=== PATIENT | male | born 1970 | race Caucasian/White ===

== ENCOUNTER 2018-10-27 20:11 | Emergency (ER) | payer OTHER ==
[~2018-10-27] VITALS: Ht 182.9 cm; Wt 117.9 kg
--- NOTE | 2018-10-27 23:22 | EKG ---
[facility] [address] [facility] [place] [address] Signed Normal sinus rhythm Normal ECG No previous ECGs available Confirmed by VIRY TAPIA MD ([id number]) on 10/27/2018 11:22:38 PM Electronically Signed By: VIRY TAPIA MD 10/27/18 2322 PATIENT NAME: NYLA HOLDEN Electrocardiogram DATE OF : 70 PHYSICIAN: VIRY TAPIA MD REPORT #: [id number] REPORT IS CONFIDENTIAL AND NOT TO BE RELEASED WITHOUT AUTHORIZATION
== END 2018-10-27 23:08 | disposition home or self-care (01) ==
LOC: ED 20:11
DX: G45.9 Transient cerebral ischemic attack, unspecified (principal); E11.9 Type 2 diabetes mellitus without complications; Z98.84 Bariatric surgery status; Z90.49 Acquired absence of other specified parts of digestive tract; Z88.1 Allergy status to other antibiotic agents; Z88.0 Allergy status to penicillin; Z88.5 Allergy status to narcotic agent
CPT/HCPCS: 70450; 70496; 70498; 71045; 80053; 84484; 85025; 85610; 85730; 93005; 93010; 99284-25; G0480; Q9967

== ENCOUNTER 2019-01-15 10:03 | Inpatient (IN) | payer OTHER ==
[~2019-01-15] VITALS: Ht 182.9 cm; Wt 113.4 kg
[2019-01-19] MEDS ORDERED: ONCE DAILY1 EACH PO (13:26)
--- NOTE | 2019-01-23 08:50 | NUR ---
PT IS ALERT, ORIENTED AND SUPPORTED BY A FRIEND RILEY. PT SEEMED CALM, HAD FEW QUESTIONS-DECLINED PRAYER AT THIS TIME. WILL FOLLOW NEEDED
--- NOTE | 2019-01-23 09:19 | NUR ---
01/23/19 0919 Shadia,Nikki 0909 PT ARRIVED TO PACU ON 10L VIA MASK, RESP EVEN AND UNLABORED BUT SHALLOW. O2 SAT 100%. 910 PT WOKE AND OPENED HIS EYES, PT REORIENTED TO PACU. PT DENIES PAIN AND NAUSEA. SURGICAL SITE CDI. PT BACK TO SLEEP AND ENCOURAGED TO DEEP BREATHE OFF AND ON. 912 O2 DECREASED TO 6L VIA MASK, PT BREATHING LESS SHALLOW, RN CONTINUES TO ENCOURAGE DEEP BREATHING OFF AND ON. 916 PT WOKE AND CONTINUES TO DENY PAIN AND NAUSEA. ICE IN PLACE ON RIGHT LOWER ABD.
--- NOTE | 2019-01-23 10:10 | NUR ---
PT ARRIVED ON THE FLOOR FROM PACU AT 0940. BEDSIDE REPORT FROM OSKAR SILVER. PT IS DROWSY, BUT EASILY WAKES TO VOICE. PT REPORTS NAUSEA, IV ZOFRAN GIVEN. DRESSING IS CDI, ICE PACK APPLIED. GAVE INSTRUCTIONS ON IS USE, PT VERBALIZED UNDERSTANDING. PT RESTING COMFORTABLY AT THIS TIME. HE DECLINED JELLO OR JUICE AT THIS TIME UNTIL HIS NAUSEA IS CONTROLLED.
--- NOTE | 2019-01-23 11:12 | NUR ---
PT IS RESTING COMFORTABLY. PT REPORTS ZOFRAN WAS EFFECTIVE.
--- NOTE | 2019-01-23 12:01 | NUR ---
PT RESTING COMFORTABLY, AT BEDSIDE. REPORTS FEELING NEED TO VOID, BUT UNABLE TO USE URINAL AT THIS TIME. WILL TRY AGAIN LATER. IVF SELENEING. REPORTS NAUSEA IS RESOLVED, TOLERATING WATER WELL. DENIED JELLO OR JUICE AT THIS TIME.
--- NOTE | 2019-01-23 13:18 | NUR ---
PT SLEEPING SOUNDLY, POST OP VITALS COMPLETE. PT WAS ABLE TO VOID SMALL AMT. ENCOURGAGED TO CONTINUE TO DRINK FLUIDS. PT STATES HE FEELS "OK" AT THIS TIME.
--- NOTE | 2019-01-23 18:35 | NUR ---
PT UP IN ROOM INDEPENDENTLY WITH SPOUSE. VOIDING WELL, GOOD ORAL INTAKE. PAIN IS WELL CONTROLED WITH PRN PAIN MEDS. NO REPORTS OF NAUSEA AFTER ZOFRAN DOSE. DRESSING C/D/I.
--- NOTE | 2019-01-23 20:32 | NUR ---
IN BED, TOLERATING FLUIDS WELL. MEDICATED WITH NORCO 1 TAB PO 5/10 ABD PAIN. COOP WITH ASSESSMENT, ON ROOM AIR. DRESSING R LOWER ABD WITH OLD SHADOWING. ABD TENDER, EARLE, NOT PASSING GAS. SCDS IN PLACE, IVF INFUSING W/O PROBLEMS. NO N/V. SIGNIFICANT OTHER IN ROOM.
--- NOTE | 2019-01-23 21:06 | NUR ---
PT REQUESTS 2ND NORCO, RATES ABD PAIN 5/10, STARTING TO RADIATE INTO R SIDE. PT ASSISTED TO BATHROOM AND BACK TO BED WITH 1 PA. PT DENIES DIZINESS, LIGHTHEADEDNESS, OR FEELING UNSTEADY. ICE PACK REFILLED. PT DENIES FURTHER NEEDS AT THIS TIME. CALL LIGHT IN REACH.
--- NOTE | 2019-01-23 21:10 | NUR ---
RESIDENTIAL FRAMING CARPENTER ROUNDING NOTE. PT AND PARTNER DENY QUESTIONS OR CONCERNS AT THIS TIME. CALL LIGHT IN REACH.
--- NOTE | 2019-01-24 00:58 | NUR ---
MEDICATED WITH 2 NORCO 6/10 ABD PAIN. DRESSING INTACT. C/O ABD CRAMPING, NOT PASSING GAS, NO BM. VOIDING DARK YELLOW URINE. PT AMBULATING HALLWAYS WITH FAMILY MEMBER, NO N/V, TOLERATING FLUIDS WELL.IVF INFUSING, SCDS INPLACE
--- NOTE | 2019-01-24 03:11 | NUR ---
UP TO BR, VOIDED, BACK TO BED, TOLERATED WELL. NO FURTHER C/O PAIN, NO N/V
--- NOTE | 2019-01-24 05:16 | NUR ---
PT AWAKES EASILY. R LOW ABD DRESSING WITH OLD DRAINAGE INPLACE. ABD TENDER TO TOUCH . EARLE. STATES NOT PASSING GAS YET. NO BM. UP WALKING HALLWAYS TWICE, TOLERATED WELL. UP INDEPENDENT IN ROOM. IVF INFUSING W/O PROBLEMS. SCDS INPLACE. TOLERATING DIET AND LIQUIDS WELL. WAS MEDICATED 2X WITH NORCO C/O ABD PAIN WITH GOOD PAIN RELIEF. IVF INFUSING W/O PROBLEMS. IS AND CPOX IN PLACE. SIGNIFICANT OTHER IN ROOM.
--- NOTE | 2019-01-24 05:41 | NUR ---
up to br, voided, back to bed, Passing gas rectally and increased oral burping noted and stated. abd soft, tender, dressing with old shadowing intact. Medicated with 2 [place] 01/12 abd paiin. Pt has not slept much this shift. Reassured, ice to incision. fresh fluids given, call light at bedside
--- NOTE | 2019-01-24 07:32 | NUR ---
RECIEVED BEDSIDE REPORT FROM OSKAR SALDIVAR. PT AWAKE AND ALERT IN BED. PASSING GAS AND BURPING. VOIDING WELL, DRINKING FLUIDS WELL. INDEPENDENT IN ROOM WITH SPOUSE.
--- NOTE | 2019-01-24 08:26 | OR ---
[facility] [address] [place], [place] [address] Signed DATE OF OPERATION: 01/23/2019 SURGEON: Erika Ferrara MD PREOPERATIVE DIAGNOSIS: Right lower quadrant abdominal wall ventral incisional hernia (8 x 10 cm). POSTOPERATIVE DIAGNOSIS: Right lower quadrant abdominal wall ventral incisional hernia (8 x 10 cm). PROCEDURE PERFORMED: Primary open ventral incisional herniorrhaphy with intraabdominal Ventrio mesh (13.8 x 17.8 cm). ESTIMATED BLOOD LOSS: None. INDICATIONS: Nyla is a 48-year-old gentleman, used to weigh over 400 pounds. He required an open appendectomy through a right lower quadrant transverse incision around 2005. He had developed an incisional hernia in that area. In the meantime, he had a gastric sleeve procedure in 2016. He went down to 250 pounds. He has been pretty stable at that weight. He now has a symptomatic but moderately reducible incisional hernia. He had been to his primary care provider who asked him to see me as a local general surgeon. I met with Nyla and his friend in the office. I could feel the fascial edges medially but not laterally. It felt to be about 8-10 cm in diameter. He has significant redundancy and pliability of abdominal wall, so we have thought we could bring that together primarily over a piece of our standard Ventrio mesh. I gave Nyla and his friend a Maureen brochure on hernias. We looked at that carefully together. We reviewed the nature of his hernia along with the difference between a primary suture repair and a mesh repair. He understands the nature of the surgery along with the expected intraop and postop course. We also reviewed the risks including, but not limited to bleeding, infection, scarring, change in contour of the skin, damage to bowel, infection of mesh requiring removal, recurrent hernias and chronic pain. He had expressed understanding and wished to proceed. DESCRIPTION OF PROCEDURE: I met with Nyla and his friend in our preop area. We all agreed on the right lower quadrant hernia and we marked that appropriately. After this, Nlya was taken into the operating room and placed in the supine position under general endotracheal tube Electronically Signed By: ERIKA FERRARA MD 01/24/19 0826 PATIENT NAME: NYLA HOLDEN OPERATIVE REPORT DATE OF : 70 REPORT #: [id number] PHYSICIAN: ERIKA FERRARA MD PCP: JOSE PEPPER REPORT IS CONFIDENTIAL AND NOT TO BE RELEASED WITHOUT AUTHORIZATION [facility] [address] [place], [place] [address] Signed anesthesia. He was prepped and draped in the usual sterile fashion. He was given preoperative antibiotics along with subcutaneous heparin. SCDs were utilized. We did not utilize a Deluca catheter for this case. We utilized his previous transverse incision. We opened that sharply with a knife and carried it down through the tissue bluntly and with the cautery. The entire hernia sac was excised and passed off the field. He had some small bowel adherent to the lateral portion of the wound and that is the reason we could not feel the edge of that fascia. It was taken down easily with our cautery and returned to the abdomen. The entire right lower quadrant was then free of adhesions. The hernia sac measured out 8 x 10 cm. We therefore chose our 13.8 x 17.8 cm oval-shaped Ventrio mesh. It was easily placed in the abdominal cavity with the omentum down over the area of the small bowel. The fascial edges were then brought together transversely with interrupted [id number] #1 Prolene sutures. A few individual simple Prolene sutures were placed in between. Several passes of the suture went through the top layer of the mesh to help hold it in place and keep it centered. Afterwards, local anesthetic was injected into his abdominal wall. The wound was irrigated and suctioned out until clear. We then closed the redundant subcutaneous adipose tissue with several interrupted 3-0 Monocryl sutures. The dermis was then brought together with multiple interrupted 3-0 subcuticular Monocryl sutures. The skin edges were reapproximated with a running 6-0 fast absorbing plain gut suture. Dry gauze and tape were then applied. Nyla was then awakened from his anesthesia slowly due to his multiple sclerosis. He was extubated and then taken into recovery room in stable condition. Erika Ferrara MD ALB/MODL /[id number] cc: MD Jose Campos FNP Copies: ERIKA FERRARA MD Electronically Signed By: ERIKA FERRARA MD 01/24/19 0826 PATIENT NAME: NYLA HOLDEN OPERATIVE REPORT DATE OF : 70 REPORT #: [id number] PHYSICIAN: ERIKA FERRARA MD PCP: JOSE PEPPER REPORT IS CONFIDENTIAL AND NOT TO BE RELEASED WITHOUT AUTHORIZATION [facility] [address] [place], [place] [address] Signed JOSE PEPPER ~ Electronically Signed By: ERIKA FERRARA MD 01/24/19 0826 PATIENT NAME: NYLA HOLDEN OPERATIVE REPORT DATE OF : 70 REPORT #: [id number] PHYSICIAN: ERIKA FERRARA MD PCP: JOSE PEPPER REPORT IS CONFIDENTIAL AND NOT TO BE RELEASED WITHOUT AUTHORIZATION
[2019-01-24] MEDS ORDERED: NORCO 10-325 T1 EACH PO (09:05)
[2019-01-24] MEDS ORDERED: TYLENOL325 MG (09:05)
[2019-01-24] MEDS ORDERED: IBUPROFEN200 MG (09:06)
== END 2019-01-24 09:45 | disposition home or self-care (01) | DRG 355 ==
LOC: DSVR 01-23 05:35 → MS 01-23 06:45 → DS 01-23 06:45 → EDSTATUS 01-23 06:45 → MS 01-23 09:35
PROVIDERS: ADMIT Colon & Rectal Surgery
PROC: 0WUF0JZ Supplement Abdominal Wall with Synthetic Substitute, Open Approach (ICD-10-PCS; principal; 2019-01-23 06:45)
DX: K43.2 Incisional hernia without obstruction or gangrene (principal); E66.9 Obesity, unspecified; E11.9 Type 2 diabetes mellitus without complications; G35 Multiple sclerosis; Z68.33 Body mass index [BMI] 33.0-33.9, adult; Z79.899 Other long term (current) drug therapy; Z98.84 Bariatric surgery status; Z88.1 Allergy status to other antibiotic agents; Z88.5 Allergy status to narcotic agent; Z88.0 Allergy status to penicillin
CPT/HCPCS: 00832; 96372; 96374; C1781; G0378; J0330; J0690; J1100; J1170; J1644; J1885; J2250; J2405; J2704; J2765; J3010; J7120

== ENCOUNTER 2020-10-04 17:06 | Observation (INO) | payer OTHER ==
[~2020-10-04] VITALS: Ht 182.9 cm; Wt 94.1 kg
[~2020-10-04 17:06] MED LIST: ALEVE220 MG PO; IBUPROFEN200 MG; IBUPROFEN200 MG PO; MULTI VITAMIN1 EACH PO; NORCO 10-325 T1 EACH PO; NORCO 5-325 TA1 EACH PO; ONCE DAILY1 EACH PO; PROMETHAZINE HC25 M1 PO; TYLENOL325 MG; TYLENOL325 MG PO
--- NOTE | 2020-10-04 21:06 | NUR ---
PT ADMITTED TO ROOM 118 FROM ED. ACCOMPANIED BY HIS SPOUSE. ALERT AND ORIENTATED, INDEPENDENT IN TRANSFER. RA.
--- NOTE | 2020-10-04 21:40 | NUR ---
PT UP TO VOID @ 2129, GOT NAUSEATED. @ 2133 ZOFRAN IV GIVEN, IV FLUIDS INFUSING PER ORDER.
--- NOTE | 2020-10-04 22:08 | NUR ---
UPON ENTERING ROOM PT SITTING UP IN BED DRY HEAVING. PT REPORTS ZOFRAN NOT EFFECTIVE FOR HIM IN THE PAST TO CONTROL N/V. DR. OVERTON NOTIFIED. NEW TELEPHONE ORDERS RECEIVED VERIFIED WITH READ BACK METHOD.
--- NOTE | 2020-10-04 22:45 | NUR ---
ASSESSMENT COMPLETE. SCHEDULED MEDS ADMINISTERED. PRN PHENERGAN 12.5 MG ADMINISTERED IN 20 ML NS OVER 10 MIN. PT WITH 18G PIV THAT FLUSHES WELL. DENIED PAIN WITH INFUSION. PT REPORTS ABD PAIN IS TOLERABLE AT THIS TIME. ABD SOFT AND NON-DISTENDED EXCEPT RLQ MASS. BOWEL TONES ACTIVE. IVF INFUSING. PT ORIENTED TO ROOM AND NURSE CALL LIGHT. LUNCH BOX AND CLEAR LIQUIDS PROVIDED. DENIES QUESTIONS OR CONCERNS. SPOUSE IN ROOM. CALL LIGHT IN REACH.
--- NOTE | 2020-10-05 00:14 | NUR ---
PT RESTING IN BED. REPORTS NAUSEA IS IMPROVING AND HE WAS ABLE TO EAT PART OF SANDWICH BOX PROVIDED. PT NPO AT THIS TIME, VERBALIZES UNDERSTANDING.
--- NOTE | 2020-10-05 02:17 | NUR ---
VS AND I&O COMPLETE. PT DENIES PAIN OR NAUSEA. NO NEEDS AT THIS TIME. CALL LIGHT IN REACH.
--- NOTE | 2020-10-05 04:55 | NUR ---
PT RESTING IN BED WITH EYES CLOSED, NAD.
--- NOTE | 2020-10-05 05:46 | NUR ---
VS AND I&O COMPLETE. SCHEDULED MEDS GIVEN WITH SIPS OF WATER. PT REPORTS RLQ PAIN 2. DENIES NAUSEA. UP TO BR INDEPENDENTLY TO DO CHLORHEXIDINE WIPEDOWN IN PREPARATION OF SURGERY THIS AM. BACK TO BED, MIKAYLA WELL. DENIES QUESTIONS OR CONCERNS. CALL LIGHT IN REACH.
--- NOTE | 2020-10-05 07:15 | NUR ---
Report from Kierra Clifford RN. Patient resting with eyes closed, respirations even and unlabored. Lying on right side. Bed rails up X2. Call light in reach. Allowed to rest.
--- NOTE | 2020-10-05 08:37 | NUR ---
PATIENT AWAKE AND ALERT IN BED. SIGNIFICANT OTHER AT BEDSIDE. MEDICATIONS ADMINISTERED PRESCRIBED. ASSESSMENT COMPLETED. DENIES NEEDS AT THIS TIME. NO QUESTIONS. CALL LIGHT IN REACH. INSTRUCTED TO CALL WITH NEEDS. VERBALIZES UNDERSTANDING.
--- NOTE | 2020-10-05 11:15 | NUR ---
STATES HEADACHED HAS IMPROVED. DENIES OTHER NEEDS AT THIS TIME. SIGNIFICANT OTHER AT BEDSIDE. CALL LIGHT IN REACH, BED RAILS UP X2.
--- NOTE | 2020-10-05 12:12 | NUR ---
SPOKE WITH PATIENT AND SPOUSE IN ROOM. PATIENT IS EMPLOYED, DRIVES. NO DME TO WALK, ALTHOUGH WHEN HE HIKES USES A WALKING STICK. 2 STEPS INTO HOME, NO ISSUES WITH THOSE. DENIES FINANCIAL WORRIES. SPOUSE WILL DRIVE HOME. PT HAS HAD SURGERY BEFORE, FEELS HE HAS GOOD IDEA OF WHAT WILL BE NEEDED. KNOWS TO ASK ANY QUESTIONS IF HE ISN'T SURE ABOUT ANYTHING. KNOWS MEDS HE IS TAKING SO FAR. PT PREFERS DISCHARGE HOME AND FEELS HE HAS ALL NEEDED FOR HIS HEALTHCARE AT HOME. CM WILL FOLLOW NEEDED. NO BARRIERS TO DISCHARGE HOME AT THIS TIME.
--- NOTE | 2020-10-05 13:43 | NUR ---
Notified patient he will be going to surgery in th next 30 minutes. Patient instructed to wipe down again and notify staff when he is done. Verblizes understanding.
--- NOTE | 2020-10-05 14:07 | NUR ---
TAKEN TO SURGERY BY OR STAFF IN BED.
--- NOTE | 2020-10-05 16:11 | NUR ---
10/05/20 1611 Lyudmila Barrera 1551 PT TO PACU SLEEPY CHIN THRUST NEEDED TO MAINTAIN AIR WAY O2 AT 6L VIA MASK.
--- NOTE | 2020-10-05 17:39 | NUR ---
Patient returns from surgery in bed with OR staff. Assessment completed. Vital signs obtained. Significant other at bedside. Patient currently denying nausea and states he is having minimal pain. Remains lethargic at this time.
--- NOTE | 2020-10-05 18:35 | NUR ---
VITALS REMAIN UNCHANGED. CONTINUES WITH MINIMAL PAIN, DENIES NAUSEA. DRESSING WITH SHADOWING UNCHANGED. GUADALUPE DRAIN EMPTIED WITH 15 ML OUTPUT SANGUINOUS DRAINAGE.
--- NOTE | 2020-10-05 18:40 | NUR ---
SURGERY THIS AFTERNOON. RETURNS FROM SURGERY WITH ACTICOAT DRESSING TO RIGHT ABDOMEN AND GUADALUPE DRAIN TO RLQ OF ABDOMEN. 15 ML OUTPUT FROM DRAIN. VOIDED POST OP SINCE RETURN TO FLOOR. CONTINUES ON IV FLUIDS. DENYING PAIN AND NAUSEA BUT STATES WHEN HE HAS HAD SURGERIES IN THE PAST, HIS NAUSEA HAS BEEN OUT OF CONTROL. SIGNIFICANT OTHER AT BEDSIDE THROUGHOUT THE DAY.
--- NOTE | 2020-10-05 19:54 | NUR ---
pt mahesh gerardoop with assessment, On room air. R abd opticoat with old drainage, manuel drain in place, teaching done with , will continue to reinforce teaching with pt. no c/o pain. and soft, denies tenderness or need for pain med. ivf infusing
--- NOTE | 2020-10-05 20:40 | NUR ---
POST OP VSS. pt RESTING IN BED, DROWSY. AWAKENS BRIEFLY TO VOICE AND CLOSES EYES. IVF INFUSING WNL. IN ROOM. LIGHTS OFF REQUESTED.
--- NOTE | 2020-10-05 23:42 | NUR ---
Up to br, voided, tolerated well, back to bed, c/o 5/10 abd insiional pain and feeling nauseated. Medicated with Toradol 30mg IV amd with Phenergan 12.5mg IV Denies passin gas, R abd incsion with old drainage. Bryant tube patent, draining sanguineous drainage. teaching doen with pt, stated understanding. SCDS in place. IVf infusing w/o problems
--- NOTE | 2020-10-06 02:29 | NUR ---
Up to br, voided QS, did own stripping of Bryant tube, questions answered to his satisfaction. IVF infusing, abd dressing with old drainage, no c/o pain or n/v
--- NOTE | 2020-10-06 04:38 | NUR ---
PATIENT CALLED FOR LEAKING FROM IV. DRESSING TAKEN DOWN AND LEAKAGE CLEANED. NEW DRESSING IN PLACE. BLOOD DRAWS WELL FROM IV AND FLUSHES. PATIENT WOULD LIKE HIS NURSE TO TAKE A LOOK AT IT, AND OSKAR SALDIVAR WAS INFORMED. PATIENT HAS CALL LIGHT AND LIGHTS TURNED DOWN AT PATIENT'S REQUEST.
--- NOTE | 2020-10-06 05:14 | NUR ---
Pt currently resting, on room air, no distress. Has been up walking in room, walked to br, voiding QS, R abd dressing with old drainage, EARLE, denies passing gas. Bryant tube patent, draining red colored drainage. teaching done with pt and . , stated understanding. tolerating fluids warm pads to back and abd. repositions self
--- NOTE | 2020-10-06 06:44 | NUR ---
Awakens easily, no further c/o pain or n/v. R opticot dressing with old drainage. ARSALAN patent draining red colored drainage. did partial care. cont to reinforce. written and verbal teaching/information given, did hands on earlier on shift. passing gas. Has voided QS. Repositions self.
--- NOTE | 2020-10-06 06:50 | NUR ---
dr irene notified of pt being SL at this time. "Ok to sl "
--- NOTE | 2020-10-06 07:18 | NUR ---
Report from Jerome De Paz RN.
--- NOTE | 2020-10-06 07:46 | NUR ---
LYING IN BED ON RIGHT SIDE. STATES HIS PAIN IS CURRENTLY 2/10 AT THIS TIME, BUT DENIES NAUSEA. DOES NOT WANT ANALGESIC AT THIS TIME. DISCUSSED CARE OF DRAIN UPON DISCHARGE, HE IS NERVOUS ABOUT CARING FOR IT BUT STATES HE WAS TOO GROGGY TO DISCUSS HOW SPOUSE FELT ABOUT IT. INFORMED THIS NURSE WILL WORK WITH THEM PRIOR TO DC HOME TO ENSURE THEY BOTH FEEL THEY ARE ABLE TO CARE FOR DRAIN. DENIES OTHER NEEDS AT THIS TIME. CALL LIGHT IN REACH, BED RAILS UP X2.
[2020-10-06] MEDS ORDERED: PRILOSEC OTC20 MG PO (09:03)
--- NOTE | 2020-10-06 09:03 | NUR ---
MED REC COMPLETE
[2020-10-06] MEDS ORDERED: ACETAMINOPHEN500 MG PO (09:49)
[2020-10-06] MEDS ORDERED: IBUPROFEN600 MG PO (09:49)
--- NOTE | 2020-10-06 10:20 | NUR ---
AMBULATE TO VEHICLE WITH SPOUSE, XIAO, MARKETING SUPPORT MANAGER/SURGICAL DRESSING MAKER WITH PATIENT. DC TO HOME.
--- NOTE | 2020-10-09 13:00 | OR ---
[facility] [address] [place], [place] [address] Signed DATE OF OPERATION: 10/05/2020 SURGEON: Nyla Overton MD PREOPERATIVE DIAGNOSES: 1. Painful right lower abdominal wall mass (chronic). 2. History of right lower quadrant incisional hernia repair (Dr. Ferrara on January 23, 2019 with implantation of mesh). POSTOPERATIVE DIAGNOSIS: Firm mass, subfascial, but contiguous with abdominal wall in association with Prolene sutures with intra-cystic old hematoma. PROCEDURE: Excision of subfascial right lower quadrant persistent abdominal mass. ANESTHESIA: General endotracheal; Shiela Dunbar CRNA, and local 10 mL of 0.25% Marcaine with epinephrine. 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 The patient has undergone incisional hernia repair in that area by Dr. Ferrara on January 23, 2019 with implantation of mesh 17 x 13 cm in size. The patient had noted a mass a number of months ago. An abdominal CT scan was performed under the direction of Dr. Ferrara at that time, which showed a fluid-filled mass with a thick wall, but clearly extrinsic to the abdominal wall and although near the mesh itself without sign of actual herniation. Indeed, the presenting complaint by Dr. Gonzalez, the emergency room physician was that of a non-reducible recurrent incarcerated hernia. The patient has no erythema, no obstructive symptoms, and review of his CT scan showed this fluid mass a number of months ago. He had not followed through with it related to the COVID pandemic apparently. He has been admitted, given fluid resuscitation and is now to undergo excision of the mass, whatever the etiology as it is painful to him. The risks of bleeding, infection, Electronically Signed By: NYLA OVERTON MD 10/09/20 1300 PATIENT NAME: NYLA HOLDEN OPERATIVE REPORT DATE OF : 70 REPORT #: [id number] PHYSICIAN: NYLA OVERTON MD PCP: Trae Thompson DO REPORT IS CONFIDENTIAL AND NOT TO BE RELEASED WITHOUT AUTHORIZATION [facility] [address] [place], [place] [address] Signed recurrence, and other unforeseen complications were reviewed in detail. He understands and wished to proceed. FINDINGS: The mass is very tense and tough and once excised actually somewhat difficult to cut into due to calcification. Within the mass was considerable amount of dark brown medium thick fluid with some flocculated areas, all of this suggestive of a retained hematoma without resolution. Complete excision was undertaken. Notably, from the inferior aspect of the hernia repair. Several Prolene sutures were in continuity with the site, which were all removed. I could not find a connection to the peritoneal cavity proper. There was some drainage of similar such fluid in the inter parietal space of the mesh in the abdominal wall. Complete excision was undertaken and final pathology is pending. A drain was placed. DESCRIPTION OF PROCEDURE: The patient was brought to the operating room, given a general endotracheal anesthetic. He received preoperative antibiotic Ancef. Sequential compression device stockings were used and heparin subcutaneously administered. The abdomen was prepared with a chlorhexidine solution after shaving. Photographs were taken. The bulky mass was easily as large as my open hand. A transverse incision was made over the previous incision site. Dissection carried through the dermis and subcutaneous tissue with electrocautery. The mass could be encountered just a few centimeters below the skin and using meticulous care and careful excision of the mass away from the subcutaneous tissue was undertaken. This was taken down to the abdominal wall fascia and rolled in an inferior to superior direction, freeing the mass in keeping it intact completely. Encountered ultimately were some prolene sutures from prior mesh implant. The mass though contiguous with the mesh did not appear to have a herniated component by any means. There were some small connections to it with some light brown fluid. It appeared in the region of the suture somewhat suggestive of possible stitch abscess or something of that sort. Cultures were obtained. The mass was ultimately completely excised. Irrigation was undertaken and previous Prolene sutures, which may have contributed to the etiology of the problem were removed. Irrigation was undertaken. fluid and there is certainly no reherniation. The mass was opened on the back table by the circulating nurse and found to be very difficult to transect with scissors alone. It was of thick dense fibrous wall. Within the cystic mass was what appeared to be old barbara brown fluid consistent with hematoma from the past. There was some loculated material as well. There was no sign of foreign body proper. Photographs were taken. Irrigation was undertaken and 10 mL of 0.25% Marcaine with epinephrine was injected locally. Brina layer was reapproximated with interrupted 2-0 Vicryl and skin closed with running subcuticular 3-0 Vicryl after placement of a 7 mm flat Bryant drain emanating through a separate stab incision in the right lower abdomen. Electronically Signed By: NYLA OVERTON MD 10/09/20 1300 PATIENT NAME: NYLA HOLDEN OPERATIVE REPORT DATE OF : 70 REPORT #: [id number] PHYSICIAN: NYLA OVERTON MD PCP: Trae Thompson DO REPORT IS CONFIDENTIAL AND NOT TO BE RELEASED WITHOUT AUTHORIZATION [facility] [address] [place] [address] Signed BLOOD LOSS: Minimal. COMPLICATIONS: None. COUNTS: Sponge, needle, and instrument counts were reported as correct x3. MD GRETCHEN Hamlin/MADDY /[id number] cc: MD Trae Campos DO Dr. Alexander [facility] Copies: ERIKA FERRARA MD, Jeff DO ~ Electronically Signed By: NYLA OVERTON MD 10/09/20 1300 PATIENT NAME: NYLA HOLDEN OPERATIVE REPORT DATE OF : 70 REPORT #: [id number] PHYSICIAN: NYLA OVERTON MD PCP: Trae Thompson DO REPORT IS CONFIDENTIAL AND NOT TO BE RELEASED WITHOUT AUTHORIZATION
--- NOTE | 2020-10-09 13:00 | HP ---
[facility] [address], [place] [address] Signed ADMISSION DATE: 10/04/2020 REASON FOR ADMISSION: Incarcerated non strangulated recurrent incisional hernia, right mid-abdomen. 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 He presented to the emergency room with onset of pain in an area of herniation in the right mid-abdomen. The patient has a complex past medical history, which includes a sleeve gastrectomy with loss of greater than 200 pounds in 2018. The patient subsequently had incisional herniation noted at a right lower abdominal transverse incision site. This was repaired by Dr. Ferrara on January 23, 2019, including implantation of mesh 13 x 17 cm in size. He at some time after that was found to have bulging of the area suggestive of recurrent hernia. The patient has also undergone laparoscopic cholecystectomy with cholangiogram and subsequent ERCP in [place] and found to have no evidence of retained stones as had been thought at the operative time. As regards to his current situation he was noted to have sudden onset of pain in the right lower abdominal recurrent incisional hernia. He notes that it has been herniated for many months. Consideration for recurrent hernia had been made by Dr. Ferrara, but due to various factors including complicating issues related to the COVID pandemic and so forth the patient had not seen Dr. Ferrara a number of months for this. His sudden onset of pain in the site tonight prompted his evaluation in the emergency room where he was thoroughly evaluated by Dr. Gonzalez. There was no ability to reduce the hernia by Dr. Gonzalez. I was urgently consulted. Of note, the patient really does not have any pain at that site now. He has had no nausea or vomiting. No flushing. No diaphoresis or other issues related to this.. PAST MEDICAL HISTORY: As previously described. He remains on far lower weight than previously based on his sleeve resection from the distant past. Electronically Signed By: NYLA OVERTON MD 10/09/20 1300 PATIENT NAME: NYLA HOLDEN HISTORY AND PHYSICAL DATE OF : 70 REPORT #: [id number] PHYSICIAN: NYLA OVERTON MD PCP: Trae Thompson DO REPORT IS CONFIDENTIAL AND NOT TO BE RELEASED WITHOUT AUTHORIZATION [facility] [address], [place] [address] Signed REVIEW OF SYSTEMS: He denies any nausea or vomiting. He has had no blood per rectum. Hematemesis and currently has no pain at the site of hernia in the right lower abdomen. SOCIAL HISTORY: The patient is to a man. 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 He has previously from [place]. He has moved in [place] for the past few years. MEDICATIONS: None currently. PHYSICAL EXAMINATION: GENERAL: A well-developed, well-nourished, only mildly obese white man who looks to be in no distress at all. HEENT: Mucous membranes are generally moist. Trachea is midline. CHEST: Clear. HEART: Regular without murmur. ABDOMEN: Has some redundancy of skin folds in part related to profound weight loss in the past. There is a quite obvious mass in the right mid-abdomen associated with a transverse incision likely from previous appendectomy scar. The area is firm and completely nontender. There is no erythema. Manipulation of the mass shows no sign of reduction at all. Various manipulations were made and this does not cause pain and certainly does not allow for reduction Examination of his CT scan performed under the direction of Dr. Ferrara on April 28, 2020 shows a distinct fluid collection in the same site. There is no clear evidence of transgression of the abdominal wall to suggest this represents an incarcerated viscus unless perhaps this represents a seroma collection or something of that sort. Lateral (coronal) view firmness finding. The fluid collection appears well formed at that time. ASSESSMENT: The patient presented with an incarcerated incisional hernia. More likely this represents a chronic seroma like cavity. The patient is admitted for consideration of operation tomorrow as it is causing pain. It is unlikely to be infected as his white count is normal. Still this may represent an unusual formation of scar tissue with associated fluid and possibly even abscess, so I think it unlikely. I do not see abdominal wall defect to suggest this represents incarcerated hollow viscus quite certainly. Exploration would be reasonably undertaken as it is causing pain but may not require abdominal wall reconstruction proper. We will review this further with the patient, but this can be performed in a timely way tomorrow as persistent observation is quite obviously not allowing for resolution of the problem and now he is symptomatic Electronically Signed By: NYLA OVERTON MD 10/09/20 1300 PATIENT NAME: NYLA HOLDEN HISTORY AND PHYSICAL DATE OF : 70 REPORT #: [id number] PHYSICIAN: NYLA OVERTON MD PCP: Trae Thompson DO REPORT IS CONFIDENTIAL AND NOT TO BE RELEASED WITHOUT AUTHORIZATION [address] [address] Signed with it. MD GRETCHEN Hamlin/MODL /[id number] cc: MD Dr Carlos Campos Copies: ERIKA FERRARA MD ~ Electronically Signed By: NYLA OVERTON MD 10/09/20 1300 PATIENT NAME: ADINANYLA CARMINE HISTORY AND PHYSICAL DATE OF : 70 REPORT #: [id number] PHYSICIAN: NYLA OVERTON MD PCP: Trae Thompson DO REPORT IS CONFIDENTIAL AND NOT TO BE RELEASED WITHOUT AUTHORIZATION
--- NOTE | 2020-10-09 13:00 | DS ---
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 His complex past medical history includes sleeve gastrectomy with loss of greater than 200 pounds in 2018. He also was noted to have had an incisional hernia repair in the right lower abdomen by Dr. Erika Ferrara on January 23, 2019, including implantation of mesh 13 cm x 17 cm in size. He later was found to have a firm dense mass in this area. A CT scan was performed several months ago, which demonstrated a fluid-filled firm thickened fluid collection without sign of recurrent hernia. The lesion is now quite painful. He was admitted for further evaluation and care. PERTINENT PHYSICAL EXAM: GENERAL: Pleasant white man, who looks to be in no systemic toxicity. CHEST: Clear. HEART: Regular without murmur. ABDOMEN: Somewhat obese despite significant weight loss in the past. A firm dense mass at least the size of a softball noted in the right lower quadrant directly beneath the incision. HOSPITAL COURSE: The patient had no signs of toxicity and although the initial impression from the emergency room personnel was that of incarcerated recurrent incisional hernia, review of his previous CT scan confirmed this not to be such a lesion, but rather a fluid collection with a dense firm wall mass adjacent to the hernia repair from the past. On October 05, 2020, he underwent exploration and excision of the mass in total. It appeared to be an organized hematoma with a firm fibrous capsule. There was no sign of hernia defect at all. Sutures from prior repair were explanted (Prolene sutures) and it did appear to emanate from the area of the inferior aspect of the hernia repair, but there was no ongoing intraabdominal or intraparietal fluid leak that I could tell. A drain was placed. Postoperatively, he was a bit too somnolent to discharge to home; however, the following morning, he was doing completely fine. He is tolerating Tylenol as his medication primarily. The drain shows some minimal amounts of serosanguineous fluid. He is discharged to home anticipating removal of the drain as an outpatient next week. Electronically Signed By: NYLA OVERTON MD 10/09/20 [facility] PATIENT NAME: NYLA HOLDEN DISCHARGE SUMMARY DATE OF : 70 REPORT #: [id number] PHYSICIAN: NYLA OVERTON MD PCP: Trae Thompson DO REPORT IS CONFIDENTIAL AND NOT TO BE RELEASED WITHOUT AUTHORIZATION [facility] [address], [place] [address] Signed DISCHARGE MEDICATIONS: Will include: 1. Tylenol 1000 mg p.o. q.6 hours as needed for pain. 2. Ibuprofen 600 mg p.o. q.6 hours as needed for pain #20 and he will resume his usual medication of multivitamin one p.o. daily and omeprazole 10 mg p.o. daily. FOLLOWUP PLAN: He is return to see me next week, at which point, we will remove the drain. He does not need to monitor and record the drainage, but only empty the drain and provide suction to the bulb. He is instructed to remove the dressing tomorrow. He is permitted to shower at any time. He does not have any lifting restriction given the location of the mass, which should avoid direct trauma to the operative site. DISCHARGE DIAGNOSES: 1. Large symptomatic cystic thick walled mass adjacent to abdominal wall and prior hernia repair, excised October 05, 2020. 2. Reflux disease. 3. Distant history of morbid obesity, status post sleeve gastrectomy with greater than 200 pounds weight loss. 4. History of appendectomy. 5. History of incisional hernia repair and appendectomy site in 2019. MD GRETCHEN Hamlin/MODL /[id number] cc: Dr. Carlos Ferrara MD Copies: ERIKA FERRARA MD Electronically Signed By: NYLA OVERTON MD 10/09/20 1300 PATIENT NAME: NYLA HOLDEN DISCHARGE SUMMARY DATE OF : 70 REPORT #: [id number] PHYSICIAN: NYLA OVERTON MD PCP: Trae Thompson DO REPORT IS CONFIDENTIAL AND NOT TO BE RELEASED WITHOUT AUTHORIZATION [facility] [address] [facility] [place] [address] Signed ~ Electronically Signed By: NYLA OVERTON MD 10/09/20 1300 PATIENT NAME: NYLA HOLDEN DISCHARGE SUMMARY DATE OF : 70 REPORT #: [id number] PHYSICIAN: NYLA OVERTON MD PCP: Trae Thompson DO REPORT IS CONFIDENTIAL AND NOT TO BE RELEASED WITHOUT AUTHORIZATION
--- NOTE | 2020-10-10 15:41 | PATH ---
[facility] [address] [facility] [place], [place] [address] Signed SPECIMEN(S): A RIGHT ABDOMINAL WALL MASS SPECIMEN SOURCE: A. RIGHT ABDOMINAL WALL MASS CLINICAL HISTORY: Preop: Hernia repair. FINAL PATHOLOGIC DIAGNOSIS: Soft tissue, right abdominal wall, excision: - Benign fibroconnective tissue with abundant hemosiderin-laden macrophages and degenerating blood, suggestive of organizing hematoma. BRP:[id number] MICROSCOPIC EXAMINATION: Histologic sections of all submitted blocks are examined by light microscopy. These findings, together with the gross examination, support the pathologic diagnosis. GROSS DESCRIPTION: The specimen, labeled "JF, right abdominal wall mass," is received in formalin and consists of previously opened, fibromembranous, cystic-like tissue fragment that measures 14 x 11.5 x 5.2 cm. The outside surface is pink-sunshine, covered with yellow-sunshine fibromembranous tissue. The inner surface is dark brown, smooth and partially covered with brown-sunshine, friable tissue. The wall measures up to 0.4 cm in thickness. Title I Teacher sections are submitted in cassettes (A1-A4). JS (under the direct supervision of a pathologist) The Gross Description was prepared using a voice recognition system. The report was reviewed for accuracy; however, sound-alike word errors, addition and/or deletions may occur. If there is any question about this report, please contact Client Services. PERFORMING LABORATORY: The technical component was performed by [facility], [address] [place] [id number] (Manufacturing Lead: Rachelle Fajardo MD; CLIA# [id number]). Professional interpretation was performed by [facility], [facility], [address] [place] [id number] (Manufacturing Lead: Isael Cox M.D.; CLIA#: [id number]). Diagnostician: Lloyd Cooper MD PATIENT NAME: NYLA HOLDEN PATHOLOGY DATE OF : 70 REPORT #: [id number] PHYSICIAN: ADEN PATHOLOGY PCP: Trae Thompson DO REPORT IS CONFIDENTIAL AND NOT TO BE RELEASED WITHOUT AUTHORIZATION [address] [place], [place] [address] Signed Pathologist Electronically Signed 10/10/2020 Copies: ~ PATIENT NAME: NYLA HOLDEN PATHOLOGY DATE OF : 70 REPORT #: [id number] PHYSICIAN: ADEN ZAMBRANO PCP: Trae Thompson DO REPORT IS CONFIDENTIAL AND NOT TO BE RELEASED WITHOUT AUTHORIZATION
== END 2020-10-06 10:20 | disposition home or self-care (01) ==
LOC: ED 17:06 → MS 17:07
PROVIDERS: ADMIT Surgery; ATTEND Surgery
PROC: 0JB80ZZ Excision of Abdomen Subcutaneous Tissue and Fascia, Open Approach (ICD-10-PCS; principal; 2020-10-05 14:00)
DX: K91.871 Postprocedural hematoma of a digestive system organ or structure following other procedure (principal); E11.9 Type 2 diabetes mellitus without complications; K21.9 Gastro-esophageal reflux disease without esophagitis; Y83.8 Other surgical procedures as the cause of abnormal reaction of the patient, or of later complication, without mention of misadventure at the time of the procedure; Z20.822 Contact with and (suspected) exposure to COVID-19; Z98.84 Bariatric surgery status; Z90.49 Acquired absence of other specified parts of digestive tract; Z98.890 Other specified postprocedural states; Z88.0 Allergy status to penicillin; Z88.1 Allergy status to other antibiotic agents; Z88.5 Allergy status to narcotic agent
CPT/HCPCS: 00300; 80053; 81001; 83605; 83690; 85025; 87070; 87075; 87205; 96372; 96374; 96375; 96376; 99284-25; C9803; G0378; J0330; J0690; J1100; J1644; J1790; J1885; J2001; J2270; J2405; J2550; J2704; J3475; J7030; J7121; U0003

== ENCOUNTER 2022-04-30 10:31 | Emergency (ER) | payer OTHER ==
[~2022-04-30] VITALS: Ht 182.9 cm; Wt 97.0 kg
[~2022-04-30 10:31] MED LIST changes: +ACETAMINOPHEN500 MG PO; +IBUPROFEN600 MG PO; +PRILOSEC OTC20 MG PO
== END 2022-04-30 13:52 | disposition home or self-care (01) ==
LOC: ED 10:31
DX: U07.1 COVID-19 (principal); E11.9 Type 2 diabetes mellitus without complications; Z88.1 Allergy status to other antibiotic agents; Z88.0 Allergy status to penicillin; Z88.5 Allergy status to narcotic agent; Z79.899 Other long term (current) drug therapy
CPT/HCPCS: 36415; 70450; 71045; 80053; 85025; 96361; 96374; 96375; 99284-25; A9270; C9803; J2405; J7030; U0003